=== PATIENT | male | born 1950 | race Caucasian/White ===

== ENCOUNTER 2019-04-04 08:12 | Emergency (ER) | payer OTHER ==
[~2019-04-04] VITALS: Ht 182.9 cm; Wt 98.4 kg
[2019-04-04 08:15] VITALS: Ht 182.9 cm; Wt 98.4 kg
[2019-04-04 09:24] VITALS: BP 170/91
== END 2019-04-04 09:24 | disposition home or self-care (01) ==
LOC: ED 08:12
DX: S09.8XXA Other specified injuries of head, initial encounter (principal); I10 Essential (primary) hypertension; E11.9 Type 2 diabetes mellitus without complications; Z88.1 Allergy status to other antibiotic agents; W22.8XXA Striking against or struck by other objects, initial encounter; Y93.89 Activity, other specified; Y92.89 Other specified places as the place of occurrence of the external cause; Y99.8 Other external cause status